=== PATIENT | male | born 1990 | race Caucasian/White ===

== ENCOUNTER 2018-12-30 17:04 | Emergency (ER) ==
[2018-12-30 17:09] VITALS: BP 144/97; TEMP 99.1; BMI 37.3
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
== END 2018-12-30 17:46 | disposition home or self-care (01) ==
LOC: ED 17:04
DX: R07.89 Other chest pain (principal); V89.2XXA Person injured in unspecified motor-vehicle accident, traffic, initial encounter; S20.211A Contusion of right front wall of thorax, initial encounter; S29.019A Strain of muscle and tendon of unspecified wall of thorax, initial encounter
CPT/HCPCS: 99283